=== PATIENT | male | born 1965 | race Caucasian/White ===

== ENCOUNTER 2023-10-26 09:38 | Outpatient (AMB) | payer OTHER, SELFPAY ==
--- NOTE | 2023-10-26 11:01 | AM.OFFWIN_ITS ---
Intake Vital Signs 10/26/23 11:03 Height 5 ft 8 in Weight 222 lb BMI 33.8 BP 120/72 Blood Pressure Location Lt brachial Position Sitting Pulse 50 Pulse Source Pulse Oximeter Temp 97.1 F Temp Source Temporal Artery Scan Pulse Oximetry (%) 96 Oxygen Delivery Method Room Air Intake Visit Reasons: EP RT foot pain fell down stairs Intake Note: ptis here today for rt foot pain fell down stairs started 1week ago Patient Tobacco Use Status: Never used Tobacco Allergies No Known Allergies Allergy (Verified 10/26/23 11:05) Do you need a note to return to daycare/school/sports/work: No HPI EP RT foot pain fell down stairs HPI Details 58 years old male presents to the office for a sick visit. Patient had a fall and injured his right foot. This happened a week ago. Patient continues to have pain over the right foot. Pain on bearing weight on the right foot. PFSH Social History Patient Tobacco Use Status: Never used Tobacco Physical Exam Vital Signs: Last Vital Signs Temp 97.1 F 10/26/23 11:03 Pulse 50 10/26/23 11:03 BP 120/72 10/26/23 11:03 Pulse Ox 96 10/26/23 11:03 Oxygen Delivery Method Room Air 10/26/23 11:03 BMI result Body Mass Index 33.8 Extrem Other: Right foot: No visible swelling. No visible bruising. Tenderness on palpation over the plantar surface of the right foot. Assessment & Plan Assessment & Plan (1) Contusion, foot: Code(s): S90.30XA - Contusion of unspecified foot, initial encounter Plan: X-ray images were personally reviewed by me. X-ray revealed a minimally displ aced 5th metatarsal fracture. Boot supplied. Nonsteroidals added. If symptoms do not improve to follow-up here. Orders: Orders XR foot RT min 3V Today S90.30XA - Contusion of unspecified foot, initial encounter Coding Level of Care Code Est Pt Level 4 (78776) Diagnoses Contusion, foot S90.30XA
[2023-10-26 11:03] VITALS: BP 120/72; PULSE 50; TEMP 36.2; O2SAT 96; BMI 33.8
== END 2023-10-26 12:25 | disposition home or self-care (01) ==
PROVIDERS: Visit Provider Internal Medicine
DX: S90.30XA Contusion of unspecified foot, initial encounter (principal)
CPT/HCPCS: 99214

== ENCOUNTER 2023-10-26 11:28 | Outpatient (REF) | payer OTHER, SELFPAY ==
--- NOTE | ~2023-10-26 | XR_ITS ---
EXAMINATION: XR FOOT, RIGHT CLINICAL INFORMATION: Contusion. Pain COMPARISON: None available. TECHNIQUE: AP, lateral, and oblique views of the right foot. FINDINGS: There is an oblique minimally distracted fracture through the shaft of the fifth metatarsal. The fifth MTP joint is intact. There is a moderate plantar spur as well as spurring along the posterior calcaneus. Moderate hallux valgus deformity of the first toe with degenerative change observed at the first MTP joint. XR/XR foot RT min 3V IMPRESSION: Fracture fifth metatarsal.
== END 2023-10-26 11:29 | disposition home or self-care (01) ==
LOC: HO.HMGCX 11:28
PROVIDERS: PCP Nurse Practitioner Adult Health; Visit Provider Internal Medicine
DX: S90.31XA Contusion of right foot, initial encounter (principal)
CPT/HCPCS: 73630